=== PATIENT | female | born 1945 | race Caucasian/White ===

== ENCOUNTER → 2017-09-11 | Day surgery (SDC) | payer MEDICARE ==
[~2017-09-11] VITALS: Ht 157.4 cm; Wt 108.4 kg
[~2017-09-11] MED LIST: ACULAR 3 ML3 M1 OP; ALLOPURINOL100 MG PO; FUROSEMIDE40 MG PO; LISINOPRIL20 MG PO; METOPROLOL SUC100 M1 PO; POTASSIUM CHLO10 ME5 PO; PROZAC20 MG PO; Synthroid,Lev150 MCG PO; TOBREX OPHTH S2.5 ML OPH; TRELEGY ELLIPT1 EACH INH; VITAMIN D35000 UNIT PO
--- NOTE | ~2017-09-11 | O ---
[place], [place] OPERATIVE NOTE NAME: [facility] [id number] UNIT #: [id number] ROOM: DOCTOR: SYDNIE CARDENAS MD BIRTHDATE: [birth year] DOS: 09/11/2017 PREOPERATIVE DIAGNOSIS: Cataract, left eye. POSTOPERATIVE DIAGNOSIS: Cataract, left eye. OPERATION: Extracapsular cataract extraction by phacoemulsification with posterior chamber intraocular lens implantation, left eye. ANESTHESIA: Monitored standby. OPERATIVE FINDINGS AND PROCEDURE: 2% Xylocaine topical anesthetic gel was applied to the eye in the preop area. The patient was taken to the operating room and prepped and draped in the standard fashion for sterile intraocular surgery. A time out procedure was performed verifying correct patient, correct site and corrects lens with Jacinto Cardenas M.D. The operating microscope was swung into position and the lid speculum was inserted. Using a Sara paracentesis blade, a paracentesis was made through clear cornea. Viscoelastic was used to fill the anterior chamber. Using a metal keratome a 2.4 mm self-sealing clear corneal cataract incision was made temporally at the limbus. Using a pre-bent 25 gauge cystotome needle, a standard continuous curvilinear capsulorrhexis was performed. The anterior capsule was removed with forceps. The lens nucleus was hydrodissected and phacoemulsified in the posterior chamber. Cortical material was removed with the irrigation aspiration hand piece and the posterior capsule was then polished with a curet under irrigation. The posterior chamber and capsular bag were filled with viscoelastic. A posterior chamber intraocular lens manufactured by: [employer], Model #[id number], and 19.0 diopters in strength were then inserted into the posterior chamber and within the capsular bag using the lens cartridge and injector system. Viscoelastic was removed using the irrigation aspiration handpiece. The anterior chamber was filled with balanced salt solution through the paracentesis. Both the paracentesis site and cataract incisions were hydrated with BSS and verified to be water-tight and self-sealing. Cefuroxime 1 mg/0.1 mL was injected into the anterior chamber through the paracentesis site. The incision checked to be water-tight using a Weck-Jocelyn sponge. The integrity of the cataract wound and ocular tension were checked. Lid speculum and drapes were removed. The patient was transferred from the operating room to the recovery room in satisfactory condition. [place], [place] OPERATIVE NOTE NAME: KENROY GALEANA UNIT #: [id number] ROOM: DOCTOR: SYDNIE CARDENAS MD BIRTHDATE: [birth year] SYDNIE CARDENAS MD CM:OPRECORD:OPERATIVE NOTE [id number] SYDNIE CARDENAS MD 09/11/17 1301 interface
[2017-09-11 09:29] VITALS: BP 135/44
[2017-09-11 10:43] VITALS: BP 144/65
[2017-09-11 10:58] VITALS: BP 141/56
[2017-09-11 11:10] VITALS: BP 142/61
== END | disposition home or self-care (01) ==
LOC: SDC 09-06 12:30
DX: H25.812 Combined forms of age-related cataract, left eye (principal); I10 Essential (primary) hypertension; E03.9 Hypothyroidism, unspecified; J45.909 Unspecified asthma, uncomplicated; E66.01 Morbid (severe) obesity due to excess calories; Z68.41 Body mass index [BMI] 40.0-44.9, adult; Z90.49 Acquired absence of other specified parts of digestive tract; Z98.51 Tubal ligation status; Z79.899 Other long term (current) drug therapy; Z82.49 Family history of ischemic heart disease and other diseases of the circulatory system

== ENCOUNTER → 2017-10-02 | Day surgery (SDC) | payer MEDICARE ==
[~2017-10-02] VITALS: Ht 157.4 cm; Wt 108.4 kg
--- NOTE | ~2017-10-02 | O ---
[place], [place] OPERATIVE NOTE NAME: KENROY GALEANA [facility] #: [id number] UNIT #: [id number] ROOM: DOCTOR: CONRADO CARDENAS MD BIRTHDATE: [birth year] DOS: 10/02/2017 PREOPERATIVE DIAGNOSIS: Cataract, right eye. POSTOPERATIVE DIAGNOSIS: Cataract, right eye. OPERATION: Extracapsular cataract extraction by phacoemulsification with posterior chamber intraocular lens implantation, right eye. ANESTHESIA: Monitored standby. OPERATIVE FINDINGS AND PROCEDURE: A 2% Xylocaine topical anesthetic gel was applied to the eye in the preop area. The patient was taken to the operating room and prepped and draped in the standard fashion for sterile intraocular surgery. A time out procedure was performed verifying correct patient, correct site and corrects lens with Conrado Cardenas M.D. The operating microscope was swung into position and the lid speculum was inserted. Using a Sara paracentesis blade, a paracentesis was made through clear cornea. Viscoelastic was used to fill the anterior chamber. Using a metal keratome a 2.4 mm self-sealing clear corneal cataract incision was made temporally at the limbus. Using a pre-bent 25 gauge cystotome needle, a standard continuous curvilinear capsulorrhexis was performed. The anterior capsule was removed with forceps. The lens nucleus was hydrodissected and phacoemulsified in the posterior chamber. Cortical material was removed with the irrigation aspiration hand piece and the posterior capsule was then polished with a curet under irrigation. The posterior chamber and capsular bag were filled with viscoelastic. A posterior chamber intraocular lens manufactured by: [employer], Model #[id number], and 19.0 diopters in strength were then inserted into the posterior chamber and within the capsular bag using the lens cartridge and injector system. Viscoelastic was removed using the irrigation aspiration handpiece. The anterior chamber was filled with balanced salt solution through the paracentesis. Both the paracentesis site and cataract incisions were hydrated with BSS and verified to be water-tight and self-sealing. Cefuroxime 1 mg/0.1 mL was injected into the anterior chamber through the paracentesis site. The incision checked to be water-tight using a Weck-Jocelyn sponge. The integrity of the cataract wound and ocular tension were checked. Lid speculum and drapes were removed. The patient was transferred from the operating room to the recovery room in satisfactory condition. [place], [place] OPERATIVE NOTE NAME: KENROY GALEANA UNIT #: [id number] ROOM: DOCTOR: CONRADO CARDENAS MD BIRTHDATE: [birth year] CONRADO CARDENAS MD CM:OPRECORD:OPERATIVE NOTE [id number] CONRADO CARDENAS MD 10/02/17 1623 interface
[2017-10-02 12:55] VITALS: BP 129/52
[2017-10-02 14:02] VITALS: BP 149/43
[2017-10-02 14:15] VITALS: BP 131/77
[2017-10-02 14:27] VITALS: BP 137/45
== END | disposition home or self-care (01) ==
LOC: SDC 09-30 12:30
DX: H25.811 Combined forms of age-related cataract, right eye (principal); I10 Essential (primary) hypertension; J45.909 Unspecified asthma, uncomplicated; E03.9 Hypothyroidism, unspecified; F41.9 Anxiety disorder, unspecified; F32.9 Major depressive disorder, single episode, unspecified; E07.9 Disorder of thyroid, unspecified; E66.09 Other obesity due to excess calories; G47.33 Obstructive sleep apnea (adult) (pediatric); Z98.42 Cataract extraction status, left eye; Z90.49 Acquired absence of other specified parts of digestive tract; Z79.899 Other long term (current) drug therapy; Z68.41 Body mass index [BMI] 40.0-44.9, adult; Z98.890 Other specified postprocedural states; Z82.49 Family history of ischemic heart disease and other diseases of the circulatory system

== ENCOUNTER 2018-08-07 13:01 | Emergency (ER) | payer MEDICARE ==
[~2018-08-07] VITALS: Ht 167.6 cm; Wt 132.1 kg
[2018-08-07] MEDS ORDERED: ATOVAQUONE750 MG/5 M PO (13:11)
[2018-08-07] MEDS ORDERED: ASPIRIN ADULT L81 M1 PO (13:12)
== END 2018-08-07 18:25 | disposition short-term general hospital (02) ==
LOC: ED 13:01
DX: S82.832A Other fracture of upper and lower end of left fibula, initial encounter for closed fracture (principal); M79.672 Pain in left foot; M25.572 Pain in left ankle and joints of left foot; Z79.82 Long term (current) use of aspirin; Z79.899 Other long term (current) drug therapy; Z90.49 Acquired absence of other specified parts of digestive tract; W18.39XA Other fall on same level, initial encounter; Y93.89 Activity, other specified; Y92.89 Other specified places as the place of occurrence of the external cause; Y99.8 Other external cause status

== ENCOUNTER 2021-08-01 04:46 | Emergency (ER) | payer MEDICARE ==
[~2021-08-01] VITALS: Ht 157.4 cm; Wt 111.6 kg
[~2021-08-01 04:46] MED LIST changes: +ASPIRIN ADULT L81 M1 PO; +ATOVAQUONE750 MG/5 M PO
[2021-08-01 05:30] LABS: CREATININE 1.99 mg/dL (0.55-1.02); POTASSIUM 4.2 mmol/L (3.5-5.1)
[2021-08-01 06:03] LABS: BASO # 0.1 10*3/uL (0.0-0.1); BASO % 0.5 % (0.0-1.0); EOS # 0.4 10*3/uL (0.0-0.4); EOS % 3.4 % (1.0-4.0); HEMATOCRIT 29.4 % (37.0-47.0); LYMPH # 1.7 10*3/uL (1.3-4.4); LYMPH % 15.1 % (27.0-41.0); MEAN CELL VOLUME 90.5 fl (81.0-99.0); MEAN CORPUSCULAR HGB 28.6 pg (27.0-31.0); MEAN CORPUSCULAR HGB CONC 31.6 g/dl (33.0-37.0); MEAN PLATELET VOLUME 11.3 fl (9.6-12.3); MONO # 0.9 10*3/uL (0.1-1.0); MONO % 7.7 % (3.0-9.0); NEUT # 7.9 10*3/uL (2.3-7.9); NEUT % 71.8 % (47.0-73.0); PLATELET COUNT AUTOMATED 257 10*3/uL (130-400); RED BLOOD COUNT 3.25 10*6/uL (4.10-5.10); RED CELL DISTRI WIDTH 15.1 % (0-14.5)
[2021-08-01] MEDS ORDERED: AMLODIPINE BESY10 MG PO (08:20)
[2021-08-01] MEDS ORDERED: LASIX20 MG PO (08:21)
[2021-08-01] MEDS ORDERED: SINGULAIR10 M1 PO (08:22)
[2021-08-01] MEDS ORDERED: KLOR-CON M1010 ME1 PO (08:23)
[2021-08-01] MEDS ORDERED: BENZONATATE100 M1 PO (08:25)
[2021-08-01] MEDS ORDERED: PROAIR HFA8.5 GM INH (08:26)
== END 2021-08-01 21:40 | disposition short-term general hospital (02) ==
LOC: ED 04:46
PROVIDERS: Internal Medicine
DX: I50.9 Heart failure, unspecified (principal); Z88.1 Allergy status to other antibiotic agents; Z79.899 Other long term (current) drug therapy; Z90.49 Acquired absence of other specified parts of digestive tract; Z98.51 Tubal ligation status

== ENCOUNTER → 2021-11-02 | Outpatient (CLI) | payer MEDICARE, OTHER ==
[~2021-11-02] MED LIST changes: +AMLODIPINE BESY10 MG PO; +BENZONATATE100 M1 PO; +KLOR-CON M1010 ME1 PO; +LASIX20 MG PO; +PROAIR HFA8.5 GM INH; +SINGULAIR10 M1 PO
== END | disposition home or self-care (01) ==
LOC: RESCLI 11:16
PROVIDERS: ATTEND Internal Medicine
DX: I13.0 Hypertensive heart and chronic kidney disease with heart failure and stage 1 through stage 4 chronic kidney disease, or unspecified chronic kidney disease (principal); I50.9 Heart failure, unspecified; E03.9 Hypothyroidism, unspecified; M35.3 Polymyalgia rheumatica; J45.909 Unspecified asthma, uncomplicated; G47.33 Obstructive sleep apnea (adult) (pediatric); M10.9 Gout, unspecified; M85.80 Other specified disorders of bone density and structure, unspecified site; I48.91 Unspecified atrial fibrillation; E78.5 Hyperlipidemia, unspecified; E55.9 Vitamin D deficiency, unspecified; Z79.899 Other long term (current) drug therapy; Z88.8 Allergy status to other drugs, medicaments and biological substances; Z90.49 Acquired absence of other specified parts of digestive tract